=== PATIENT | male | born 1990 | race Two or more races ===

== ENCOUNTER 2016-07-28 18:47 | Inpatient (IN) | payer MEDICAID ==
[~2016-07-28] VITALS: Ht 172.7 cm; Wt 53.7 kg
[~2016-07-28 18:47] MED LIST: NOR10T GT
[2016-07-28 20:20] LABS: Basophils # (auto) 0.1 uL; DEFINITIVE VIEW TRANSMISSION; Eosinophils # (auto) 0.5 uL; Eosinophils % (auto) 5.7 % (0.0-7.0); Hematocrit 24.7 % (41.0-53.0); Hemoglobin 7.6 g/dL (13.5-17.5); Mean Corpuscular Hemoglobin 20.1 pg (28.0-32.0); Mean Corpuscular Hgb Conc. 30.9 g/dL (32.0-36.0); Mean Platelet Volume 6.5 fL (7.4-10.4); Monocytes # (auto) 0.8 uL; Monocytes % (auto) 9.4 % (0.0-12.0); Neutrophils # (auto) 5.2 uL; Neutrophils % (auto) 60.9 % (37.0-80.0); White Blood Cell 8.5 10^3/uL (4.4-10.8)
[2016-07-28 20:26] LABS: Platelet Count (auto) 785 10^3/uL (140-450); Red Cell Distribution Width 20.2 % (11.6-16.0)
[2016-07-28 20:45] LABS: Anisocytosis Slight; Hypochromia Marked; Microcytosis Marked; Ovalocytes FEW; Platelet Estimate Markedly Increased; Tear Drop Cells FEW
[2016-07-28 20:46] LABS: Stomatocytes Few
[2016-07-28 20:59] LABS: Albumin 2.6 g/dL (3.4-5.0); BUN/Creatinine Ratio 15.8; Bilirubin, Total 0.1 mg/dL (0.2-1.0); Calcium 8.5 mg/dL (8.5-10.1); Potassium 3.9 mmol/L (3.5-5.1)
[2016-07-28] MEDS ORDERED: cefTRIAXone 1GM/50ML D5W 50 ML IV ONE (23:30)
[2016-07-28] MEDS ORDERED: HYDROmorphone HCL 2 MG/ML VL IV ONE (23:30)
[2016-07-28] MEDS ORDERED: ONDANSETRON HCL 4 MG/2 ML VIAL IV ONE (23:30)
[2016-07-29] MEDS ORDERED: PANTOPRAZOLE SODIUM 40 MG/10 ML VIAL IV ONE (05:15)
[2016-07-29] MEDS ORDERED: ACETAMINOPHEN 325 MG TAB PO PRN (05:15)
[2016-07-29] MEDS ORDERED: ONDANSETRON HCL 4 MG/2 ML VIAL IV PRN (05:15)
[2016-07-29] MEDS ORDERED: HYDROmorphone HCL 2 MG/ML VL IV ONE (05:45)
[2016-07-29 05:53] LABS: Hematocrit 25.7 % (41.0-53.0); Hemoglobin 7.9 g/dL (13.5-17.5)
[2016-07-29 09:00] VITALS: BP 109/60
[2016-07-29] MEDS ORDERED: cefTRIAXone 1GM/50ML D5W 50 ML IV SCH (09:00)
[2016-07-29] MEDS ORDERED: PANTOPRAZOLE SODIUM 40 MG/10 ML VIAL IV SCH (10:00)
[2016-07-29] MEDS: FAMOTIDINE 20 MG TAB PO SCH ×2 (10:09→22:07)
[2016-07-29 14:00] VITALS: BP 128/74
[2016-07-29] MEDS: HYDROcodone-ACET 5/325MG TAB PO PRN ×2 (16:39→20:51)
[2016-07-29 16:48] VITALS: BP 120/80
[2016-07-29 20:00] VITALS: BP 114/53
[2016-07-29 22:01] VITALS: BP 114/53
== END 2016-07-29 22:58 | disposition left against medical advice (07) | DRG 383 ==
LOC: ER 18:51 → OVERFLOW 18:52 → WEST WING 07-29 09:41
PROVIDERS: ADMIT Nurse Practitioner; ATTEND Nurse Practitioner
DX: L03.113 Cellulitis of right upper limb (principal); E43 Unspecified severe protein-calorie malnutrition; D75.89 Other specified diseases of blood and blood-forming organs; D50.9 Iron deficiency anemia, unspecified; K50.90 Crohn's disease, unspecified, without complications; N20.0 Calculus of kidney; Z88.8 Allergy status to other drugs, medicaments and biological substances; Z82.49 Family history of ischemic heart disease and other diseases of the circulatory system; Z68.1 Body mass index [BMI] 19.9 or less, adult; Z85.048 Personal history of other malignant neoplasm of rectum, rectosigmoid junction, and anus
CPT/HCPCS: 36415; 73130; 74176; 80053; 82728; 85014; 85018; 85025; 86141; 86850; 86900; 86901; 87040; 96365; 96375; C9113; J0696; J2405

== ENCOUNTER 2016-12-04 17:52 | Emergency (ER) | payer MEDICAID ==
[~2016-12-04] VITALS: Ht 172.7 cm; Wt 52.2 kg
[2016-12-04 18:32] VITALS: BP 118/77
[2016-12-04] MEDS ORDERED: HYDROmorphone HCL 2 MG/ML VL IM ONE (20:00)
[2016-12-04] MEDS ORDERED: ONDANSETRON HCL 4 MG/2 ML VIAL IM ONE (20:00)
== END 2016-12-04 20:41 | disposition home or self-care (01) ==
LOC: ER 18:04
DX: M07.662 Enteropathic arthropathies, left knee (principal); K50.90 Crohn's disease, unspecified, without complications; Z88.1 Allergy status to other antibiotic agents
CPT/HCPCS: 73562; 96372; 99284; J1170; J2405

== ENCOUNTER 2017-08-30 16:36 | Emergency (ER) | payer MEDICAID ==
[~2017-08-30] VITALS: Ht 175.3 cm; Wt 59.0 kg
[2017-08-30 16:54] VITALS: BP 121/83
[2017-08-30] MEDS ORDERED: traMADol HCL 50 MG TAB PO ONE (17:45)
== END 2017-08-30 17:58 | disposition home or self-care (01) ==
LOC: ER 16:41
DX: M23.91 Unspecified internal derangement of right knee (principal); M25.461 Effusion, right knee; F17.210 Nicotine dependence, cigarettes, uncomplicated; M25.561 Pain in right knee; G89.29 Other chronic pain; Z88.1 Allergy status to other antibiotic agents; Z79.899 Other long term (current) drug therapy
CPT/HCPCS: 73562

== ENCOUNTER 2020-08-21 06:34 | Emergency (ER) | payer MEDICAID ==
[~2020-08-21] VITALS: Ht 175.3 cm; Wt 61.2 kg
[2020-08-21 06:44] VITALS: BP 105/71
[2020-08-21 07:29] LABS: Basophils # (auto) 0.1 10 ^3/uL (0-0.2); Eosinophils # (auto) 0.2 10 ^3/uL (0-0.8)
[2020-08-21 07:31] LABS: Basophils % (auto) 1.4 % (0.0-2.0); Eosinophils % (auto) 2.2 % (0.0-7.0); Hemoglobin 7.1 g/dL (13.5-17.5); Lymphocytes # (auto) 2.1 10 ^3/uL (0.4-5.4); Lymphocytes % (auto) 23.8 % (10.0-50.0); Mean Corpuscular Hemoglobin 16.5 pg (28.0-32.0); Mean Corpuscular Hgb Conc. 29.4 g/dL (32.0-36.0); Mean Corpuscular Volume 56.2 fL (80.0-100.0); Monocytes # (auto) 0.5 10 ^3/uL (0-1.3); Monocytes % (auto) 5.4 % (0.0-12.0); Neutrophils % (auto) 67.2 % (37.0-80.0); Nucleated Red Blood Cells % 0.2 %; Red Blood Cells 4.28 10^6/uL (4.5-5.90); White Blood Cell 8.9 10^3/uL (4.4-10.8)
[2020-08-21 07:34] LABS: Urine Bacteria NONE SEEN /hpf (None Seen); Urine Blood TRACE /uL (Negative); Urine Mucus FEW (None Seen); Urine Specific Gravity 1.027 (1.001-1.035); Urine WBC 2 /hpf (0 - 3)
[2020-08-21 07:41] LABS: Anion Gap 7 (5-15); Blood Urea Nitrogen 15 mg/dL (7-18); Calcium 9.4 mg/dL (8.5-10.1); Carbon Dioxide 26 mmol/L (21-32); Chloride 106 mmol/L (98-107); Glucose 115 mg/dL (74-106); Potassium 3.9 mmol/L (3.5-5.1); Sodium 139 mmol/L (136-145)
[2020-08-21 07:42] LABS: Alcohol, Urine < 3.0 mg/dL (0-10); Amphetamine Screen, Urine POSITIVE (NEGATIVE); Barbiturate Scree,Urine NEGATIVE (NEGATIVE); Benzodiazephine Screen, Urine NEGATIVE (NEGATIVE); Cannabinoid Screen, Urine POSITIVE (NEGATIVE); Cocaine Screen, Urine NEGATIVE (NEGATIVE); Opiate Scree,Urine NEGATIVE (NEGATIVE); Phencyclidine Screen, Urine NEGATIVE (NEGATIVE)
[2020-08-21 07:47] LABS: Alanine Aminotransferase 16 U/L (16-61); Alkaline Phosphatase 105 U/L (45-117); Aspartate Aminotransferase 11 U/L (15-37); BUN/Creatinine Ratio 12.9; Bilirubin, Total 0.2 mg/dL (0.2-1.0); GFR African American 94 mL/min; GFR Non-African American 78 mL/min; Total Protein 8.1 g/dL (6.4-8.2)
== END 2020-08-21 11:22 | disposition left against medical advice (07) ==
LOC: ER 06:34
DX: R11.2 Nausea with vomiting, unspecified (principal); R00.2 Palpitations; Z53.21 Procedure and treatment not carried out due to patient leaving prior to being seen by health care provider
CPT/HCPCS: 36415; 80053; 80307; 81001; 84484; 85025; 93005